=== PATIENT | male | born 2000 | race Hispanic/Latino ===

== ENCOUNTER 2019-08-20 22:01 | Emergency (ER) | payer OTHER ==
[2019-08-20] MEDS ORDERED: IBUPROFEN 600 MG TABLET ONE (22:34)
== END 2019-08-20 23:27 | disposition home or self-care (01) ==
LOC: EDH 22:01
DX: S20.212A Contusion of left front wall of thorax, initial encounter (principal); F41.9 Anxiety disorder, unspecified; W01.0XXA Fall on same level from slipping, tripping and stumbling without subsequent striking against object, initial encounter; Y93.E1 Activity, personal bathing and showering; Y92.148 Other place in prison as the place of occurrence of the external cause; Y99.8 Other external cause status
CPT/HCPCS: 71046

== ENCOUNTER 2019-09-11 05:03 | Emergency (ER) | payer OTHER ==
[2019-09-11 05:45] LABS: BASOPHILS % (AUTO) 0.7 % (0.0-5.0); EOSINOPHILS % (AUTO) 2.2 % (0.0-8.0); HEMATOCRIT 41.1 % (42-54); LYMPHOCYTES % (AUTO) 37.4 % (21.0-51.0); MEAN CORPUSCULAR HEMOGLOBIN 29.7 pg (27.0-33.0); MEAN CORPUSCULAR VOLUME 84.7 fL (80-100); MONOCYTES % (AUTO) 4.5 % (3.0-13.0); NEUTROPHILS % (AUTO) 54.9 % (40.0-77.0); PLATELET COUNT (AUTO) 357 K/uL (130-400); RED BLOOD CELL COUNT(AUTO) 4.85 MIL/uL (4.50-6.20); RED CELL DISTRIBUTION WIDTH 11.9 % (11.0-15.5); WHITE BLOOD COUNT (AUTO) 6.9 K/uL (4.8-10.8)
[2019-09-11] MEDS ORDERED: THIAMINE HCL 100 MG/ML 2ML VIAL ONE (05:46)
[2019-09-11 06:02] LABS: APPEARANCE,URINE Clear (CLEAR); BILIRUBIN,URINE Negative (NEGATIVE); COLOR,URINE Yellow (YELLOW); GLUCOSE, URINE (UA) Negative (NEGATIVE); KETONES,URINE Negative (NEGATIVE); LEUKOCYTE ESTERASE ,URINE Negative (NEGATIVE); NITRATE,URINE Negative (NEGATIVE); OCCULT BLOOD,URINE Negative (NEGATIVE); PROTEIN,URINE Negative (NEGATIVE); UROBILINOGEN,URINE 0.2 mg/dL (0.2-1.0)
[2019-09-11 06:03] LABS: CREATININE 0.8 mg/dL (0.5-1.5); POTASSIUM 3.3 mmol/L (3.5-5.1)
[2019-09-11 06:10] LABS: AMPHET/METH SCREEN,URINE NEGATIVE (NEGATIVE); BARBITURATE SCREEN, URINE NEGATIVE (NEGATIVE); BENZODIAZEPINES SCREEN,URINE NEGATIVE (NEGATIVE); CANNABINOID SCREEN,URINE NEGATIVE (NEGATIVE); COCAINE SCREEN,URINE POSITIVE (NEGATIVE); OPIATE SCREEN,URINE NEGATIVE (NEGATIVE); PHENCYCLIDINE SCREEN,URINE NEGATIVE (NEGATIVE)
[2019-09-11 06:12] LABS: ALBUMIN 4.4 g/dL (3.5-5.0); TOTAL PROTEIN, SERUM 8.6 g/dL (6.0-8.3)
[2019-09-11] MEDS ORDERED: POTASSIUM BICARB/CIT AC 25 MEQ TABLET.EFF ONE (06:27)
[2019-09-11 09:34] LABS: ACETAMINOPHEN < 1 mcg/mL (10-29); SALICYLATE < 2.8 mg/dL (2.8-20.0)
== END 2019-09-11 15:32 | disposition home or self-care (01) ==
LOC: EDH 05:03
DX: F32.89 Other specified depressive episodes (principal); R45.851 Suicidal ideations; F10.229 Alcohol dependence with intoxication, unspecified; F41.9 Anxiety disorder, unspecified; Z72.0 Tobacco use
CPT/HCPCS: 36415; 80053; 80305; 81003; 82550; 84484; 85025; 93005; 96361; 96374; 99284; G0480 ×3; G0481; J3411